=== PATIENT | female | born 2000 | race African-American/Black ===

== ENCOUNTER 2023-01-24 13:35 | Inpatient (IN) ==
[~2023-01-24] VITALS: Ht 167.6 cm; Wt 95.6 kg
[2023-01-24] VITALS (7 sets, daily range): BP systolic 115–139; BP diastolic 60–77
[2023-01-24] MEDS ORDERED: PRENTAB9 PO (13:53)
[2023-01-24] MEDS ORDERED: HOME MED LIST COMPLETE! XX SCH (13:55)
[2023-01-24] MEDS ORDERED: LACTATED RINGER'S 1000 ML IV STA (15:11)
[2023-01-24] MEDS ORDERED: CARBOPROST TROMETHAMINE 250 MCG/ML AMP IM PRN (15:15)
[2023-01-24] MEDS ORDERED: OXYTOCIN DRIP 30 UNITS in IV 1 EA IV PRN ×4 (15:15)
[2023-01-24] MEDS ORDERED: METHYLERGONOVINE MALEATE 0.2MG/ML 1ML VIAL IM PRN (15:15)
[2023-01-24] MEDS ORDERED: LIDOCAINE 1% MDV 20ML VIAL INFIL PRN (15:15)
[2023-01-24 16:14] LABS: HEMATOCRIT 31.3 % (36.0-47.0); HEMOGLOBIN 8.9 g/dl (12.0-15.5); MEAN CORPUSCULAR HEMOGLOBIN 17.4 pg (27.0-33.0); MEAN CORPUSCULAR HGB CONC 28.4 g/dl (32.0-36.5); MEAN CORPUSCULAR VOLUME 61.1 fl (80.0-96.0); PLATELET COUNT, AUTOMATED 180 10^3/uL (150-450); RED BLOOD COUNT 5.12 10^6/uL (4.00-5.40)
[2023-01-24] MEDS ORDERED: miSOPROStol 50MCG 1/2 TABLET PO PRN (16:50)
[2023-01-24] MEDS: LR 1,000 ML IV SCH ×2 (17:21→22:30)
[2023-01-24] MEDS ORDERED: NALBUPHINE HCL (10 MG/ML) 100MG/10ML MDV IV PRN (22:10)
[2023-01-24] MEDS ORDERED: OXYTOCIN DRIP 30 UNITS in IV 1 EA IV SCH (22:15)
[2023-01-24] MEDS ORDERED: PROMETHAZINE 25MG/ML 1ML VIAL IV ONE (23:00)
[2023-01-25] VITALS (69 sets, daily range): BP systolic 81–172; BP diastolic 46–106; TEMP 98.3–99.5
[2023-01-25] MEDS ORDERED: ePHEDrine SULFATE 25 MG/5 ML(5MG/ML) SYRINGE IVP PRN (02:40)
[2023-01-25] MEDS ORDERED: NALOXONE INJ 0.4MG/1ML VIAL IV PRN (02:40)
[2023-01-25] MEDS ORDERED: LR 500 ML IV PRN (02:40)
[2023-01-25] MEDS ORDERED: EPIDURAL/PCA KEYS XX PRN (02:40)
[2023-01-25] MEDS ORDERED: ONDANSETRON 4MG 2ML VIAL IV PRN ×2 (02:40→18:50)
[2023-01-25] MEDS ORDERED: diphenhydrAMINE 50MG/ML VIAL IV PRN (02:40)
[2023-01-25] MEDS ORDERED: ONDANSETRON 4MG 2ML VIAL IV ONE (03:00)
[2023-01-25] MEDS: FENTANYL/ROPIVACAINE/NACL BAG 100 ML EPIDURAL SCH ×3 (03:27→17:59)
[2023-01-25] MEDS ORDERED: PROPRANOLOL INJ 1MG/ML 1ML VIAL IV STA (07:49)
[2023-01-25] MEDS ORDERED: D5W/0.45% SODIUM CHLORIDE 1,000 ML IV ONE (07:50)
[2023-01-25] MEDS ORDERED: CALCIUM CARBONATE 500 MG CHEW U/D PO ONE (08:15)
[2023-01-25] MEDS: LR 1,000 ML IV SCH (09:18)
[2023-01-25] MEDS ORDERED: ACETAMINOPHEN 500 MG TAB PO ONE (10:40)
[2023-01-25] MEDS: D5W/0.45% SODIUM CHLORIDE 1,000 ML IV SCH ×2 (10:43→14:10)
[2023-01-25 11:25] LABS: ALBUMIN 2.4 G/DL (3.2-5.2); ALKALINE PHOSPHATASE 167 U/L (46-116); ALT/SGPT < 9 U/L (7.0-40); AST/SGOT 14 U/L (<34); BLOOD UREA NITROGEN < 5 MG/DL (9-23); CALCIUM LEVEL 8.6 MG/DL (8.5-10.1); CARBON DIOXIDE LEVEL 22 MMOL/L (20-31); CHLORIDE LEVEL 105 MMOL/L (98-107); CREATININE FOR GFR 0.61 MG/DL (0.55-1.30); GLOMERULAR FILTRATION RATE > 60.0 (>60); GLUCOSE, FASTING 117 MG/DL (60-100); POTASSIUM SERUM 3.7 MMOL/L (3.5-5.1); SODIUM LEVEL 135 MMOL/L (136-145); TOTAL PROTEIN 6.1 G/DL (5.7-8.2)
[2023-01-25 11:36] LABS: CREATININE,RANDOM URINE 87.4 MG/DL
[2023-01-25 12:00] LABS: HEMATOCRIT 28.3 % (36.0-47.0); HEMOGLOBIN 7.9 g/dl (12.0-15.5); MEAN CORPUSCULAR HEMOGLOBIN 17.4 pg (27.0-33.0); MEAN CORPUSCULAR HGB CONC 27.9 g/dl (32.0-36.5); MEAN CORPUSCULAR VOLUME 62.2 fl (80.0-96.0); PLATELET COUNT, AUTOMATED 152 10^3/uL (150-450); RED BLOOD COUNT 4.55 10^6/uL (4.00-5.40)
[2023-01-25 12:14] LABS: TOTAL PROTEIN,RANDOM URINE 186.5 MG/DL (0.0-14.0)
[2023-01-25] MEDS ORDERED: AMPICILLIN SOD 2 GM in D5W MINI-BAG PLUS 100 ML IV SCH (13:00)
[2023-01-25] MEDS ORDERED: GENTAMICIN IV SCH (15:00)
[2023-01-25] MEDS ORDERED: NS IV SCH (15:00)
[2023-01-25 17:21] LABS: CORD GAS ABE V -6.8; CORD GAS HCO3 V 19.3 MMOL/L; CORD GAS O2 SAT V 70.5 %; CORD GAS PCO2 V 40.6 mmHg; CORD GAS PH V 7.294 UNITS; CORD GAS PO2 V 30.6 mmHg; CORD GAS SBC V 18.4 MMOL/L; CORD GAS TCO2 V 20.5 MMOL/L
[2023-01-25 17:23] LABS: CORD GAS ABE A -7.9; CORD GAS HCO3 A 20.7 MMOL/L; CORD GAS O2 SAT A 50.3 %; CORD GAS PCO2 A 54.3 mmHg; CORD GAS PH A 7.2 UNITS; CORD GAS PO2 A 23.7 mmHg; CORD GAS SBC A 17.1 MMOL/L; CORD GAS TCO2 A 22.4 MMOL/L
[2023-01-25] MEDS: TRANEXAMIC ACID INJection 1,000 MG in NS 100 ML IV PRN ×2 (17:27→18:20)
[2023-01-25] MEDS ORDERED: ESTROGENS VAGINAL CREAM 30GM PV ONE (18:30)
[2023-01-25] MEDS ORDERED: MOM 30ML SUSPENSION UDC PO PRN (18:50)
[2023-01-25] MEDS ORDERED: OXYTOCIN DRIP 30 UNITS in IV 1 EA IV SCH ×4 (18:50)
[2023-01-25] MEDS ORDERED: IBUPROFEN 800 MG TAB PO PRN (18:50)
[2023-01-25] MEDS ORDERED: DOCUSATE SODIUM 100MG CAPSULE PO PRN (18:50)
[2023-01-25] MEDS ORDERED: DIBUCAINE 1% OINTMENT 30GM TOP PRN (18:50)
[2023-01-25] MEDS ORDERED: METHYLERGONOVINE MALEATE 0.2 MG TAB PO PRN (18:50)
[2023-01-25] MEDS ORDERED: ACETAMINOPHEN TAB 650MG DOSE (2X325MG) PO PRN (18:50)
[2023-01-25] MEDS ORDERED: RHOGAM 300MCG (1500IU) INJ IM SCH (18:50)
[2023-01-25 19:25] LABS: HEMATOCRIT 26.2 % (36.0-47.0); HEMOGLOBIN 7.5 g/dl (12.0-15.5); MEAN CORPUSCULAR HEMOGLOBIN 17.8 pg (27.0-33.0); MEAN CORPUSCULAR HGB CONC 28.6 g/dl (32.0-36.5); MEAN CORPUSCULAR VOLUME 62.2 fl (80.0-96.0); PLATELET COUNT, AUTOMATED 161 10^3/uL (150-450); RED BLOOD COUNT 4.21 10^6/uL (4.00-5.40); WHITE BLOOD COUNT 23.6 10^3/uL (4.0-10.0)
[2023-01-25 19:37] LABS: INR 1.44; PROTHROMBIN TIME 17.2 SECONDS (12.5-14.5)
[2023-01-25 19:38] LABS: PARTIAL THROMBOPLASTIN TIME 27.2 SECONDS (24.8-34.2)
[2023-01-25] MEDS: ACETAMINOPHEN 500 MG TAB PO PRN (19:44)
[2023-01-25] MEDS: IBUPROFEN 600MG TAB PO PRN (19:44)
[2023-01-25 19:59] LABS: ALBUMIN 2.1 G/DL (3.2-5.2); ALKALINE PHOSPHATASE 150 U/L (46-116); ALT/SGPT 9 U/L (7.0-40); AST/SGOT 18 U/L (<34); BILIRUBIN,TOTAL 1.3 MG/DL (0.3-1.2); BLOOD UREA NITROGEN 5 MG/DL (9-23); CALCIUM LEVEL 8.1 MG/DL (8.5-10.1); CARBON DIOXIDE LEVEL 20 MMOL/L (20-31); CHLORIDE LEVEL 105 MMOL/L (98-107); CREATININE FOR GFR 0.76 MG/DL (0.55-1.30); GLOMERULAR FILTRATION RATE > 60.0 (>60); GLUCOSE, FASTING 113 MG/DL (60-100); POTASSIUM SERUM 3.8 MMOL/L (3.5-5.1); SODIUM LEVEL 134 MMOL/L (136-145); TOTAL PROTEIN 5.5 G/DL (5.7-8.2)
[2023-01-26] VITALS (8 sets, daily range): BP systolic 119–137; BP diastolic 62–89; O2SAT 98–99
[2023-01-26] MEDS: ACETAMINOPHEN 500 MG TAB PO PRN ×2 (03:06→09:37)
[2023-01-26] MEDS: IBUPROFEN 600MG TAB PO PRN ×2 (03:06→09:37)
[2023-01-26 05:39] LABS: HEMATOCRIT 25.2 % (36.0-47.0); HEMOGLOBIN 7.5 g/dl (12.0-15.5); MEAN CORPUSCULAR HEMOGLOBIN 18.9 pg (27.0-33.0); MEAN CORPUSCULAR HGB CONC 29.8 g/dl (32.0-36.5); MEAN CORPUSCULAR VOLUME 63.6 fl (80.0-96.0); PLATELET COUNT, AUTOMATED 134 10^3/uL (150-450); RED BLOOD COUNT 3.96 10^6/uL (4.00-5.40); WHITE BLOOD COUNT 22.7 10^3/uL (4.0-10.0)
[2023-01-26] MEDS: LR 1,000 ML IV SCH ×2 (07:35→07:36)
[2023-01-26] MEDS ORDERED: SLF 3 ML SYR IV PRN (08:50)
[2023-01-26] MEDS ORDERED: ESTROGENS VAGINAL CREAM 30GM PV SCH (09:00)
[2023-01-26] MEDS: FERROUS SULFATE 325MG TAB PO SCH (09:36)
[2023-01-26] MEDS: PRENATAL VITAMINS CHEWABLE TABLET PO SCH (09:36)
[2023-01-26] MEDS ORDERED: SLF 3 ML SYR IV SCH (14:00)
[2023-01-27] MEDS: ACETAMINOPHEN 500 MG TAB PO PRN (01:19)
[2023-01-27 06:00] VITALS: BP 106/58; O2SAT 100
[2023-01-27] MEDS: FERROUS SULFATE 325MG TAB PO SCH (08:24)
[2023-01-27] MEDS: PRENATAL VITAMINS CHEWABLE TABLET PO SCH (08:24)
[2023-01-27] MEDS ORDERED: MEASLES,MUMPS,RUBELLA VACCINE INJ (MMR-II) SC.IMMUN ONE (09:00)
== END 2023-01-27 09:30 | disposition home or self-care (01) | DRG 768 ==
LOC: M LDO 13:35 → M LDI 14:56 → M OBS 01-26 10:27
PROVIDERS: ADMIT Advanced Practice Midwife; ATTEND Advanced Practice Midwife
PROC: 0UQC7ZZ Repair Cervix, Via Natural or Artificial Opening (ICD-10-PCS; principal; 2023-01-25)
PROC: 10E0XZZ Delivery of Products of Conception, External Approach (ICD-10-PCS; 2023-01-25)
PROC: 0KQM0ZZ Repair Perineum Muscle, Open Approach (ICD-10-PCS; 2023-01-25)
PROC: 0HQ9XZZ Repair Perineum Skin, External Approach (ICD-10-PCS; 2023-01-25)
PROC: 30233N1 Transfusion of Nonautologous Red Blood Cells into Peripheral Vein, Percutaneous Approach (ICD-10-PCS; 2023-01-25)
DX: O14.94 Unspecified pre-eclampsia, complicating childbirth (principal); Z37.0 Single live birth; Z3A.39 39 weeks gestation of pregnancy; O70.0 First degree perineal laceration during delivery; O70.1 Second degree perineal laceration during delivery; O32.6XX0 Maternal care for compound presentation, not applicable or unspecified; O69.1XX0 Labor and delivery complicated by cord around neck, with compression, not applicable or unspecified; O41.1090 Infection of amniotic sac and membranes, unspecified, unspecified trimester, not applicable or unspecified; O42.12 Full-term premature rupture of membranes, onset of labor more than 24 hours following rupture; O71.3 Obstetric laceration of cervix; O72.1 Other immediate postpartum hemorrhage

== ENCOUNTER 2023-09-30 12:50 | Inpatient (IN) | payer OTHER ==
[~2023-09-30] VITALS: Ht 167.6 cm; Wt 81.8 kg
[~2023-09-30 12:50] MED LIST: PRENTAB9 PO
[2023-09-30 13:39] LABS: HEMATOCRIT 34.8 % (36.0-47.0); HEMOGLOBIN 10.5 g/dl (12.0-15.5); MEAN CORPUSCULAR HEMOGLOBIN 20.8 pg (27.0-33.0); MEAN CORPUSCULAR HGB CONC 30.2 g/dl (32.0-36.5); MEAN CORPUSCULAR VOLUME 68.8 fl (80.0-96.0); PLATELET COUNT, AUTOMATED 200 10^3/uL (150-450); RED BLOOD COUNT 5.06 10^6/uL (4.00-5.40); WHITE BLOOD COUNT 9.2 10^3/uL (4.0-10.0)
[2023-09-30 13:57] LABS: ETHYL ALCOHOL (ETHANOL) < 0.003 % (0.000-0.010)
[2023-09-30 13:58] LABS: HCG, SERUM QUALITATIVE NEGATIVE (NEGATIVE)
[2023-09-30 13:59] LABS: ALBUMIN 3.8 G/DL (3.2-5.2); ALKALINE PHOSPHATASE 78 U/L (46-116); ALT/SGPT 43 U/L (7.0-40); AST/SGOT 45 U/L (<34); BILIRUBIN,DIRECT 0.3 MG/DL (<0.4); BILIRUBIN,TOTAL 0.7 MG/DL (0.3-1.2); BLOOD UREA NITROGEN 8 MG/DL (9-23); CALCIUM LEVEL 9.3 MG/DL (8.5-10.1); CARBON DIOXIDE LEVEL 23 MMOL/L (20-31); CHLORIDE LEVEL 110 MMOL/L (98-107); CREATININE FOR GFR 0.75 MG/DL (0.55-1.30); GLOMERULAR FILTRATION RATE > 60.0 (>60); GLUCOSE, FASTING 98 MG/DL (60-100); POTASSIUM SERUM 3.7 MMOL/L (3.5-5.1); SALICYLATE LEVEL < 3.0 MG/DL (<30); SODIUM LEVEL 142 MMOL/L (136-145); TOTAL PROTEIN 7.3 G/DL (5.7-8.2)
[2023-09-30 14:01] LABS: THYROID STIMULATING HORMONE 1.272 uIU/ML (0.55-4.78)
[2023-09-30] MEDS ORDERED: ACET325C5 PO (15:02)
[2023-09-30] MEDS ORDERED: HOME MED LIST COMPLETE! XX SCH (15:05)
[2023-09-30] MEDS ORDERED: MOM 30ML SUSPENSION UDC PO PRN (15:10)
[2023-09-30] MEDS ORDERED: traZODone 50 MG TAB PO PRN (15:10)
[2023-09-30] MEDS ORDERED: diphenhydrAMINE 25MG CAP PO PRN (15:10)
[2023-09-30] MEDS ORDERED: MAALOX 30 ML SUSP *UDC PO PRN (15:10)
[2023-09-30] MEDS ORDERED: ACETAMINOPHEN TAB 650MG DOSE (2X325MG) PO PRN (15:10)
[2023-09-30 15:11] LABS: AMPHETAMINES LEVEL URINE NEGATIVE (NEGATIVE); BARBITURATES URINE NEGATIVE (NEGATIVE); CANNABINOIDS URINE NEGATIVE (NEGATIVE); COCAINE METABOLITE URINE NEGATIVE (NEGATIVE); METHADONE URINE NEGATIVE (NEGATIVE); OPIATES URINE NEGATIVE (NEGATIVE); PHENCYCLIDINE URINE NEGATIVE (NEGATIVE)
[2023-09-30 15:12] LABS: BENZODIAZEPINES URINE NEGATIVE (NEGATIVE)
[2023-09-30 17:45] VITALS: BP 120/67; TEMP 98.1; O2SAT 100
[2023-10-01 06:35] VITALS: BP 120/58; TEMP 98; O2SAT 100
[2023-10-01] MEDS: ESCITALOPRAM OXALATE 5MG TABLET (LEXAPRO) PO SCH (09:36)
[2023-10-01] MEDS: IBUPROFEN 400MG TAB PO PRN (09:36)
[2023-10-01 18:59] VITALS: BP 113/58; TEMP 97.5
[2023-10-02 06:12] VITALS: BP 100/52; TEMP 98.2; O2SAT 100
[2023-10-02] MEDS: ESCITALOPRAM OXALATE 5MG TABLET (LEXAPRO) PO ONE (09:56)
[2023-10-02 18:17] VITALS: BP 121/68; TEMP 97.4
[2023-10-03 06:08] VITALS: BP 107/56; TEMP 99.2; O2SAT 98
[2023-10-03] MEDS: ESCITALOPRAM OXALATE 10 MG TAB (LEXAPRO) PO SCH (08:57)
[2023-10-03 18:12] VITALS: BP 119/62; TEMP 97.9; O2SAT 100
[2023-10-04 06:48] VITALS: BP 124/61; TEMP 97.5; O2SAT 99
[2023-10-04] MEDS ORDERED: LEXA1TAB PO (08:31)
== END 2023-10-04 11:00 | disposition home or self-care (01) | DRG 881 ==
LOC: M ED 12:50 → M ED INP 15:07 → M PSY 17:15
PROVIDERS: ADMIT Student in an Organized Health Care Education/Training Program; ATTEND Student in an Organized Health Care Education/Training Program
DX: F32.A Depression, unspecified (principal); R45.851 Suicidal ideations; F41.9 Anxiety disorder, unspecified; F17.200 Nicotine dependence, unspecified, uncomplicated; F53.0 Postpartum depression